=== PATIENT | female | born 2000 | race Caucasian/White ===

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

== ENCOUNTER 2022-02-22 11:13 | Emergency (ER) | payer OTHER ==
[~2022-02-22] VITALS: Ht 170.2 cm; Wt 80.3 kg
[2022-02-22 11:29] LABS: Source, Urine Clean Catch
[2022-02-22 11:36] LABS: Appearance, Urine Cloudy (Clear); Bilirubin, Urine Neg (Neg); Blood, Urine 3+ (Neg); Color, Urine Yellow (P-Yellow); Glucose Qualitative, Urine Neg (Neg); Ketones, Urine 3+ (Neg); Leukocyte Esterase, Urine 3+ (Neg); Nitrite, Urine Pos (Neg); Protein, Urine 3+ (Neg); Urobilinogen, Urine NORM (Normal)
[2022-02-22 11:49] LABS: White Blood Cells, Urine TNTC /hpf (0-5)
[2022-02-22 11:51] LABS: Bacteria Many /hpf; Squamous Epithelial Cells Few /hpf (Few)
[2022-02-22 11:52] LABS: Mucus Light (0-Heavy)
[2022-02-22 11:56] LABS: BASOPHILS ABSOLUTE AUTO 0.05 K/mm3 (0.00-0.23); BASOPHILS PERCENT AUTO 0 % (0-2); EOSINOPHILS ABSOLUTE AUTO 0.04 K/mm3 (0.00-0.68); EOSINOPHILS PERCENT AUTO 0 % (0-6); Hematocrit 34.9 % (33.0-51.0); Hemoglobin 12.2 g/dL (11.5-16.0); IMMATURE GRAN ABSOLUTE AUTO 0.07 K/mm3 (0.00-0.10); IMMATURE GRAN PERCENT AUTO 0 % (0-1); LYMPHOCYTES ABSOLUTE AUTO 1.01 K/mm3 (0.84-5.20); LYMPHOCYTES PERCENT AUTO 5 % (21-46); MONOCYTES ABSOLUTE AUTO 1.07 K/mm3 (0.16-1.47); MONOCYTES PERCENT AUTO 5 % (4-13); Mean Corpuscular HGB 30.6 pg (26.0-34.0); Mean Corpuscular Volume 88 fL (80-100); Mean Platelet Volume 10.4 fL (9.1-12.4); NEUTROPHILS PERCENT AUTO 89 % (41-73); Platelet Count 410 K/mm3 (150-400); RDW Coefficient Variation 12.2 % (11.7-14.2); RDW Standard Deviation 39.1 fL (35.1-46.3); Red Blood Cell Count 3.99 M/mm3 (3.80-5.20); White Blood Cell Count 19.64 K/mm3 (4.00-11.30)
[2022-02-22 12:10] LABS: Albumin, Blood 3.8 g/dL (3.4-5.0); Albumin/Globulin Ratio 0.8 (0.8-1.8); Bilirubin, Total 0.6 mg/dL (0.1-1.0); Bun/Creatinine Ratio 16.7 (12.0-20.0); Calcium, Blood 10.1 mg/dL (8.5-10.1); Creatinine, Blood 1.14 mg/dL (0.40-1.00); Globulin, Blood 4.9 g/dL (2.2-4.0); Total Protein, Blood 8.7 g/dL (6.4-8.2)
[2022-02-22] MEDS ORDERED: CEFD300 PO (13:39)
== END 2022-02-22 14:26 | disposition home or self-care (01) ==
LOC: ER 11:13
PROVIDERS: Physician Assistant
DX: N13.6 Pyonephrosis (principal); Z87.442 Personal history of urinary calculi
CPT/HCPCS: 36415; 74176; 80053; 81001; 81025; 85025; 87086; 96361; 96374; 96375; 99284-25; J0696; J1885; J2405; J7030

== ENCOUNTER 2022-05-17 09:11 | Inpatient (IN) | payer OTHER ==
[~2022-05-17] VITALS: Ht 170.2 cm; Wt 77.1 kg
[2022-05-17 10:21] LABS: BASOPHILS ABSOLUTE AUTO 0.06 K/mm3 (0.00-0.23); BASOPHILS PERCENT AUTO 0 % (0-2); EOSINOPHILS ABSOLUTE AUTO 0.01 K/mm3 (0.00-0.68); EOSINOPHILS PERCENT AUTO 0 % (0-6); Hematocrit 23.3 % (33.0-51.0); Hemoglobin 7.4 g/dL (11.5-16.0); IMMATURE GRAN ABSOLUTE AUTO 0.17 K/mm3 (0.00-0.10); IMMATURE GRAN PERCENT AUTO 1 % (0-1); LYMPHOCYTES ABSOLUTE AUTO 1.51 K/mm3 (0.84-5.20); LYMPHOCYTES PERCENT AUTO 7 % (21-46); MONOCYTES ABSOLUTE AUTO 2.27 K/mm3 (0.16-1.47); MONOCYTES PERCENT AUTO 10 % (4-13); Mean Corpuscular HGB 27.3 pg (26.0-34.0); Mean Corpuscular HGB Conc 31.8 g/dL (31.5-36.5); Mean Corpuscular Volume 86 fL (80-100); Mean Platelet Volume 10.4 fL (9.1-12.4); NEUTROPHILS ABSOLUTE AUTO 18.22 K/mm3 (1.96-9.15); NEUTROPHILS PERCENT AUTO 82 % (41-73); Platelet Count 554 K/mm3 (150-400); RDW Coefficient Variation 14.7 % (11.7-14.2); RDW Standard Deviation 46.5 fL (35.1-46.3); Red Blood Cell Count 2.71 M/mm3 (3.80-5.20); White Blood Cell Count 22.24 K/mm3 (4.00-11.30)
[2022-05-17 10:48] LABS: Source, Urine Clean Catch
[2022-05-17 10:51] LABS: Appearance, Urine Hazy (Clear); Bilirubin, Urine Neg (Neg); Blood, Urine 2+ (Neg); Color, Urine Yellow (P-Yellow); Glucose Qualitative, Urine Neg (Neg); Ketones, Urine 2+ (Neg); Leukocyte Esterase, Urine 3+ (Neg); Nitrite, Urine Neg (Neg); Protein, Urine 3+ (Neg); Specific Gravity, Urine 1.015 (1.003-1.022); Urobilinogen, Urine NORM (Normal)
[2022-05-17 10:59] LABS: Albumin, Blood 2.6 g/dL (3.4-5.0); Albumin/Globulin Ratio 0.4 (0.8-1.8); Bilirubin, Total 0.5 mg/dL (0.1-1.0); Bun/Creatinine Ratio 9.5 (12.0-20.0); Calcium, Blood 9.3 mg/dL (8.5-10.1); Creatinine, Blood 0.95 mg/dL (0.40-1.00); Globulin, Blood 5.9 g/dL (2.2-4.0); Potassium, Blood 3.8 mmol/L (3.5-5.5); Total Protein, Blood 8.5 g/dL (6.4-8.2)
[2022-05-17 11:00] LABS: Bacteria Few /hpf; Squamous Epithelial Cells Mod /hpf (Few); White Blood Cells, Urine 25-50 /hpf (0-5)
[2022-05-17 12:13] LABS: Influenza A, PCR NEGATIVE (NEGATIVE); Influenza B, PCR NEGATIVE (NEGATIVE); Resp Syncytial Virus, PCR NEGATIVE (NEGATIVE); SARS-Cov-2 (COVID-19) PCR, MMC NEGATIVE (NEGATIVE)
[2022-05-17 16:08] LABS: Hematocrit 23.1 % (33.0-51.0); Hemoglobin 7.3 g/dL (11.5-16.0)
--- NOTE | 2022-05-17 17:57 | NUR ---
1705 RECEIVED PT TO RM 333 VIA W/C FROM ER. PT IS A&O, ABLE TO TX SELF TO BED. ADMITTED FOR ACUTE BLOOD LOSS/ANEMIA. HX OF KIDNEY STONES, BL NEPHROSTOMY TUBES, BL URETAL STENTS WITH PERSISTANT FLANK PAIN. PER REPORT, PT TO ER WITH C/O N/V/D AND L FLANK PAIN. CT SHOWING SUBCAPSULAR HEMATOMA AND Hgb AT 7.3. PT TO HAVE SERIAL H/H TO SEE IF Hgb REMAINS STABLE OR POSSIBLE ACTIVE BLEED AT HEMATOMA. IF H/H STABLE, PT TO D/C HOME TOMORROW AND F/U WITH OUTPT UROLOGY. PT IS VERY PLEASANT, INDEPENDENT IN AND TO [facility]. RESTING QUIETLY AT THIS TIME. CALL LT IN REACH.
[2022-05-17 21:02] LABS: Hematocrit 21.6 % (33.0-51.0); Hemoglobin 7.1 g/dL (11.5-16.0)
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
[2022-05-18 05:16] LABS: Hematocrit 22.6 % (33.0-51.0); Hemoglobin 7.2 g/dL (11.5-16.0); Mean Corpuscular HGB 27.4 pg (26.0-34.0); Mean Corpuscular HGB Conc 31.9 g/dL (31.5-36.5); Mean Corpuscular Volume 86 fL (80-100); Mean Platelet Volume 10.4 fL (9.1-12.4); Platelet Count 539 K/mm3 (150-400); RDW Coefficient Variation 15.5 % (11.7-14.2); RDW Standard Deviation 48.8 fL (35.1-46.3); Red Blood Cell Count 2.63 M/mm3 (3.80-5.20); White Blood Cell Count 19.05 K/mm3 (4.00-11.30)
[2022-05-18 11:01] LABS: Hematocrit 21.9 % (33.0-51.0)
[2022-05-18 15:01] LABS: Hematocrit 20.5 % (33.0-51.0); Hemoglobin 6.6 g/dL (11.5-16.0)
--- NOTE | 2022-05-18 18:36 | NUR ---
SHIFT SUMMARY: PATIENT A&OX4. PLEASANT AND COOPERATIVE c CARE. USES CALL LIGHT APPROPRIATELY AND ABLE TO ADVOCATE FOR HER NEEDS. PATIENT REPORTS OF PAIN TO L LEG. MEDICATED X1 c FENTANYL AND PERCOCET FOR PAIN. PATIENT REPORTS OF ADEQUATE RELIEF. PATIENT H&H HAS BEEN DROPPING TODAY. PRBC STARTED TRANSFUSION AT 1640 VITAL SIGNS REVIEWED. PATIENT HAD CONSULT FOR INTERVENTIONAL RADIOLOGIST FOR L SUBCAPSULAR HEMATOMA c WORSENING ANEMIA. CONSULT WAS CALLED THIS PM AND SPOKE TO ANSWERING SERVICE FOR DR. LUCAS'S OFFICE. THIS PM DR. LUCAS CAME AND SAW PATIENT FOR CONSULT. PATIENT LEFT THE ROOM AT 1828 TO [facility] FOR PROCEDURE. TRANSPORTED VIA HOSPITAL BED BY KERA CHARLTON FROM [facility].
--- NOTE | 2022-05-18 19:16 | NUR ---
REPORT GIVEN TO PROTOTYPE ENGINEER MANAGER REGARDING PATIENT CONDITION.
--- NOTE | 2022-05-18 20:05 | NUR ---
update Pt arrived to room from [facility] approx [phone]. Pt alert, oriented, accompained by and 4 month old daughter. vss. telemetry applied. bp set up to sequence post op vitals. Report received from Angelica [facility] nurse. Assessed R groin site together, site soft, minimal blood around chg part of dressing, no bruising. pt educated on laying flat for recovery, not bending leg. Call light in reach, orietned to room, call light.
[2022-05-18 20:34] LABS: Hematocrit 25.9 % (33.0-51.0); Hemoglobin 8.2 g/dL (11.5-16.0)
--- NOTE | 2022-05-19 06:27 | NUR ---
SHIFT SUMMARY PT A&O X4, PLEASANT. SP02>90% ON RA. TELEMETRY SHOWED MOSTLY NSR/SIT HR 90'S-100'S. VSS. PT HAS R GROIN SITE, NO BRUISING, NO OOZING. PT C/O AROUND MIDNIGHT OF PRESSURE AROUND SITE. SITE HAD QUARTER SIZE HARD LUMP. PRESSURE HELD, LUMP DISBANDED, PT STATED RELIEF FROM PRESSURE. SITE RECOVERED, PT AMBULATED TO BATHROOM TO VOID. ABX INFUSED PER EMAR. SPOUSE AND DAUGHTER WENT HOME SHORTLY AFTER PT ARRIVED TO ROOM. PT TALKED ON PHONE TO SPOUSE UNTIL AROUND MIDNIGHT, THEN WENT TO SLEEP. PT CURRENTLY SLEEPING ON HER BACK IN ROOM.
[2022-05-19 09:07] LABS: BASOPHILS ABSOLUTE AUTO 0.06 K/mm3 (0.00-0.23); BASOPHILS PERCENT AUTO 0 % (0-2); EOSINOPHILS ABSOLUTE AUTO 0.08 K/mm3 (0.00-0.68); EOSINOPHILS PERCENT AUTO 1 % (0-6); Hematocrit 22.2 % (33.0-51.0); Hemoglobin 7.2 g/dL (11.5-16.0); IMMATURE GRAN PERCENT AUTO 1 % (0-1); LYMPHOCYTES PERCENT AUTO 7 % (21-46); MONOCYTES ABSOLUTE AUTO 1.53 K/mm3 (0.16-1.47); MONOCYTES PERCENT AUTO 9 % (4-13); Mean Corpuscular HGB 27.7 pg (26.0-34.0); Mean Corpuscular HGB Conc 32.4 g/dL (31.5-36.5); Mean Corpuscular Volume 85 fL (80-100); Mean Platelet Volume 10.6 fL (9.1-12.4); NEUTROPHILS ABSOLUTE AUTO 13.25 K/mm3 (1.96-9.15); NEUTROPHILS PERCENT AUTO 82 % (41-73); Platelet Count 457 K/mm3 (150-400); RDW Coefficient Variation 15.6 % (11.7-14.2); RDW Standard Deviation 49.1 fL (35.1-46.3); White Blood Cell Count 16.22 K/mm3 (4.00-11.30)
[2022-05-19 09:17] LABS: Albumin, Blood 2.1 g/dL (3.4-5.0); Albumin/Globulin Ratio 0.4 (0.8-1.8); Bilirubin, Total 0.7 mg/dL (0.1-1.0); Bun/Creatinine Ratio 7.8 (12.0-20.0); Calcium, Blood 8.8 mg/dL (8.5-10.1); Creatinine, Blood 1.02 mg/dL (0.40-1.00); Globulin, Blood 5.3 g/dL (2.2-4.0); Potassium, Blood 3.5 mmol/L (3.5-5.5); Total Protein, Blood 7.4 g/dL (6.4-8.2)
[2022-05-19 12:45] LABS: Hematocrit 24.1 % (33.0-51.0); Hemoglobin 7.8 g/dL (11.5-16.0)
[2022-05-19 16:58] LABS: Hematocrit 22.9 % (33.0-51.0); Hemoglobin 7.6 g/dL (11.5-16.0)
--- NOTE | 2022-05-19 18:06 | NUR ---
SHIFT SUMMARY; ASSUMED CARE AT 0700. A/A/OX4 DURING SHIFT. INDEPENDANT IN ROOM. VSS, SPOUSE AT BEDSIDE DURING SHIFT. PLEASANT AND COOPERATIVE WITH CARE. H & H MONITORED DURING SHIFT. MEDS PER EMAR, NO ACUTE CHANGES, WILL CONTINUE TO MONITOR AND TREAT UNTIL CHANGE OF SHIFT.
[2022-05-19 20:18] LABS: Hematocrit 25.3 % (33.0-51.0); Hemoglobin 8.1 g/dL (11.5-16.0)
[2022-05-20 04:31] LABS: BASOPHILS ABSOLUTE AUTO 0.04 K/mm3 (0.00-0.23); BASOPHILS PERCENT AUTO 0 % (0-2); EOSINOPHILS ABSOLUTE AUTO 0.09 K/mm3 (0.00-0.68); EOSINOPHILS PERCENT AUTO 1 % (0-6); Hematocrit 22.3 % (33.0-51.0); Hemoglobin 7.3 g/dL (11.5-16.0); IMMATURE GRAN PERCENT AUTO 1 % (0-1); LYMPHOCYTES ABSOLUTE AUTO 1.73 K/mm3 (0.84-5.20); LYMPHOCYTES PERCENT AUTO 10 % (21-46); MONOCYTES ABSOLUTE AUTO 1.58 K/mm3 (0.16-1.47); MONOCYTES PERCENT AUTO 9 % (4-13); Mean Corpuscular HGB 27.9 pg (26.0-34.0); Mean Corpuscular HGB Conc 32.7 g/dL (31.5-36.5); Mean Corpuscular Volume 85 fL (80-100); Mean Platelet Volume 10.9 fL (9.1-12.4); NEUTROPHILS ABSOLUTE AUTO 14.26 K/mm3 (1.96-9.15); NEUTROPHILS PERCENT AUTO 80 % (41-73); Platelet Count 474 K/mm3 (150-400); RDW Coefficient Variation 15.8 % (11.7-14.2); RDW Standard Deviation 49.5 fL (35.1-46.3); Red Blood Cell Count 2.62 M/mm3 (3.80-5.20)
[2022-05-20 04:53] LABS: Bun/Creatinine Ratio 5.5 (12.0-20.0); Calcium, Blood 8.8 mg/dL (8.5-10.1); Creatinine, Blood 1.09 mg/dL (0.40-1.00); Potassium, Blood 3.5 mmol/L (3.5-5.5)
--- NOTE | 2022-05-20 06:44 | NUR ---
PATIENT CONTINUES TO COMPLAIN OF LEFT FLANK PAIN. PRN ANALGESICS ADMINISTERED ORDERED DO PROVIDE SOME RELIEF. ADDED HEATING PAD FOR ADDITIONAL COMFORT. IV ANTIBIOTICS ADMNISTERED ORDERED. WBCs ELEVAED FROM 16.22 TO 17.8 THIS MORNING. PT DENIES PAIN WITH URINATION OR BLOOD IN URINE. HAT WAS REMOVED FROM TOILET AT SOME POINT IN THE NIGHT, SO ONLY ABLE TO RECORD URINE OCCURRENCES PER PATIENT REPORT. PT REPORTS INTERMITTENT NAUSEA PRIOR TO AND SINCE ADMISSION. ONE DOSE OF PRN ONDANSETRON ADMINISTERED OVERNIGHT PROVIDED RELIEF FROM NAUSEA. PATIENT APPEARS TO BE RESTING COMFORTABLY IN BED AT THIS TIME.
[2022-05-20 10:31] LABS: Vancomycin, Trough 41.6 ug/mL (5.0-10.0)
--- NOTE | 2022-05-20 12:35 | NUR ---
UPDATE DR KAY CONTACTED REGARDING PT HGB 7.3. TELEPHONE ORDERS FOR REPEAT H&H AT 1600 TODAY.
[2022-05-20 16:09] LABS: Hematocrit 26.6 % (33.0-51.0); Hemoglobin 8.3 g/dL (11.5-16.0)
--- NOTE | 2022-05-20 16:20 | NUR ---
SHIFT SUMMARY PT A/O X4, PLEASANT AND COOPERATIVE WITH CARE. SPO2 >92%. PT ABLE TO AMBULATE INDEPENDENTLY TO RESTROOM, DENIES ANY DIZZINESS OR LIGHT HEADEDNESS. PT HAD A FEW EPISODES OF INTERMITTENT NAUSEA AND VOMITTED TWICE. PT HR INCREASED TO 110-130'S AND PT ALSO DIAPHORETIC WITH CHILLS WHEN NAUSEATED. PT TEMP SLIGHTLY ELEVATED, BUT REMAINED BELOW 99.5. PT CONTINUES TO C/O L FLANK PAIN THAT IS EASILY RELIEVED WITH ANALGESICS. PT PAIN ALSO SEEMS TO INCREASE WHEN SHE IS NAUSEATED. SHE REPORTS HAVING A LOOSE BM TODAY. PT FAMILY AT THE BEDSIDE NOW.
[2022-05-21 04:28] LABS: BASOPHILS ABSOLUTE AUTO 0.07 K/mm3 (0.00-0.23); BASOPHILS PERCENT AUTO 0 % (0-2); EOSINOPHILS ABSOLUTE AUTO 0.09 K/mm3 (0.00-0.68); EOSINOPHILS PERCENT AUTO 0 % (0-6); Hematocrit 24.3 % (33.0-51.0); Hemoglobin 7.7 g/dL (11.5-16.0); IMMATURE GRAN ABSOLUTE AUTO 0.19 K/mm3 (0.00-0.10); IMMATURE GRAN PERCENT AUTO 1 % (0-1); LYMPHOCYTES ABSOLUTE AUTO 1.44 K/mm3 (0.84-5.20); LYMPHOCYTES PERCENT AUTO 6 % (21-46); MONOCYTES ABSOLUTE AUTO 1.74 K/mm3 (0.16-1.47); MONOCYTES PERCENT AUTO 8 % (4-13); Mean Corpuscular HGB 27.2 pg (26.0-34.0); Mean Corpuscular HGB Conc 31.7 g/dL (31.5-36.5); Mean Corpuscular Volume 86 fL (80-100); Mean Platelet Volume 10.4 fL (9.1-12.4); NEUTROPHILS ABSOLUTE AUTO 19.12 K/mm3 (1.96-9.15); NEUTROPHILS PERCENT AUTO 84 % (41-73); Platelet Count 468 K/mm3 (150-400); RDW Coefficient Variation 15.6 % (11.7-14.2); RDW Standard Deviation 49.1 fL (35.1-46.3); Red Blood Cell Count 2.83 M/mm3 (3.80-5.20); White Blood Cell Count 22.65 K/mm3 (4.00-11.30)
--- NOTE | 2022-05-21 06:31 | NUR ---
MS. DOE HAD TWO EPISODES OF NAUSEA WITH DRY HEAVES, SPITTING UP SOME SALIVA, BETWEEN 2100 AND 2300 LAST NIGHT. ZOFRAN AND PHENERGAN WERE ADMINISTERED ORDERED. MINIMAL RELIEF WITH ZOFRAN. NAUSEA RESOLVED WITH PHENERGAN. TEMPERATURE PEAKED AT 101.7. TYLENOL ADMINISTERED AND TEMPERATURE RESOLVED. PATIENT CONTINUES TO HAVE INTERMITTENT SEVERE BOUTS OF PAIN TO THE LEFT FLANK. HEART RATE DROPPED INTO THE 50S WHILE SLEEPING AT ONE POINT AND CAN ELEVATE TO THE 150S WITH SEVERE PAIN. WBCS ELEVATED AGAIN TODAY AT 22.65, UP FROM 17.80 YESTERDAY. HEMOGLOBIN DROPPED FROM 8.3 YESTERDAY TO 7.7 TODAY.
--- NOTE | 2022-05-21 07:42 | NUR ---
DR KAY CONTACTED REGARDING PT INCREASING WBC'S AND ZOSYN BEING D/C'D. PER DR KAY, PLAN TO MONITOR PT AT THIS TIME DUE TO PT BLOOD AND URINE CULTURES BEING NEGATIVE. NO NEW ABX ORDERS.
[2022-05-21 18:22] LABS: Vancomycin, Random 8.9 ug/mL
--- NOTE | 2022-05-21 19:18 | NUR ---
SHIFT SUMMARY PT WAS PLEASANT AND COOPERATIVE WITH CARE. A/O X4. INDEPENDENT IN ROOM. PT WAS IN SINUS TACH, RATE 100-110'S MAJORITY OF SHIFT AND INCREASE IN RATE WITH AMBULATION. PT HAD LOW GRADE TEMP THAT DECREASED WITH PO TYLENOL. PT STILL C/O L FLANK PAIN THAT IS INTERMITTENT, PAIN WAS RELIEVED WITH PRN ANALGESICS. PT DENIES ANY NAUSEA T/O SHIFT. DR KAY RESTARTED PT ON ZOSYN AND VANCO TODAY. ZOSYN STILL INFUSING, VANCO HAS NOT BEEN STARTED YET. VANCO TROUGH WAS REDRAWN AND DOWN TO THE 8'S. PT PROCALCITONIN UP TO 4.66. ORDER FOR CT OF ABD AND PELVIS WITH CONTRAST PLACED FOR TOMORROW MORNING. BLOOD CULTURES ALSO REDRAWN TODAY. REPORT GIVEN TO INVENTORY TECHNICIAN RN.
--- NOTE | 2022-05-22 06:35 | NUR ---
PATIENT CONTINUES TO EXPERIENCE INTERMITTENT NAUSEA, LOW GRADE FEVER AND LEFT FLANK PAIN. MEDICATED PER EMAR PRN. HEART RATE WILL INCREASE HIGH INTO THE 150S WITH PAIN. PATIENT CONTINUES TO BE INDEPENDENT WITH AMBULATION AND ADLs. 0615 VANCOMYCIN TROUGH IS PENDING. PER PHARMD, DO NOT ADMINISTER 07:00 UNTIL CLEARED BY PHARMD TO DO SO.
[2022-05-22 06:54] LABS: Vancomycin, Trough 21.8 ug/mL (5.0-10.0)
[2022-05-22 10:14] LABS: BASOPHILS ABSOLUTE AUTO 0.05 K/mm3 (0.00-0.23); BASOPHILS PERCENT AUTO 0 % (0-2); EOSINOPHILS ABSOLUTE AUTO 0.11 K/mm3 (0.00-0.68); EOSINOPHILS PERCENT AUTO 1 % (0-6); Hematocrit 22.7 % (33.0-51.0); Hemoglobin 7.3 g/dL (11.5-16.0); IMMATURE GRAN ABSOLUTE AUTO 0.19 K/mm3 (0.00-0.10); IMMATURE GRAN PERCENT AUTO 1 % (0-1); LYMPHOCYTES ABSOLUTE AUTO 1.46 K/mm3 (0.84-5.20); LYMPHOCYTES PERCENT AUTO 6 % (21-46); MONOCYTES ABSOLUTE AUTO 2.02 K/mm3 (0.16-1.47); MONOCYTES PERCENT AUTO 9 % (4-13); Mean Corpuscular HGB Conc 32.2 g/dL (31.5-36.5); Mean Corpuscular Volume 87 fL (80-100); Mean Platelet Volume 10.7 fL (9.1-12.4); NEUTROPHILS ABSOLUTE AUTO 19.59 K/mm3 (1.96-9.15); NEUTROPHILS PERCENT AUTO 84 % (41-73); Platelet Count 489 K/mm3 (150-400); RDW Coefficient Variation 15.9 % (11.7-14.2); RDW Standard Deviation 50.9 fL (35.1-46.3); Red Blood Cell Count 2.61 M/mm3 (3.80-5.20); White Blood Cell Count 23.42 K/mm3 (4.00-11.30)
[2022-05-22 16:07] LABS: Hematocrit 24.7 % (33.0-51.0); Hemoglobin 7.8 g/dL (11.5-16.0)
[2022-05-23 04:26] LABS: BASOPHILS ABSOLUTE AUTO 0.08 K/mm3 (0.00-0.23); BASOPHILS PERCENT AUTO 0 % (0-2); EOSINOPHILS ABSOLUTE AUTO 0.13 K/mm3 (0.00-0.68); EOSINOPHILS PERCENT AUTO 1 % (0-6); Hematocrit 22.4 % (33.0-51.0); Hemoglobin 7.1 g/dL (11.5-16.0); IMMATURE GRAN ABSOLUTE AUTO 0.36 K/mm3 (0.00-0.10); IMMATURE GRAN PERCENT AUTO 2 % (0-1); LYMPHOCYTES ABSOLUTE AUTO 1.85 K/mm3 (0.84-5.20); LYMPHOCYTES PERCENT AUTO 9 % (21-46); MONOCYTES ABSOLUTE AUTO 1.78 K/mm3 (0.16-1.47); MONOCYTES PERCENT AUTO 8 % (4-13); Mean Corpuscular HGB 27.1 pg (26.0-34.0); Mean Corpuscular HGB Conc 31.7 g/dL (31.5-36.5); Mean Corpuscular Volume 86 fL (80-100); NEUTROPHILS ABSOLUTE AUTO 17.47 K/mm3 (1.96-9.15); NEUTROPHILS PERCENT AUTO 81 % (41-73); Platelet Count 479 K/mm3 (150-400); RDW Standard Deviation 50.7 fL (35.1-46.3); Red Blood Cell Count 2.62 M/mm3 (3.80-5.20); White Blood Cell Count 21.67 K/mm3 (4.00-11.30)
--- NOTE | 2022-05-23 05:32 | NUR ---
SHIFT SUMMARY A/OX4, IND IN ROOM. C/O L. FLANK PAIN, MEDICATED PER EMAR. VSS, NO ACUTE CHANGES AT THIS TIME. BED IN LOWEST POSITION WITH CALL LIGHT IN REACH. WILL CONTINUE TO MONITOR AND REPORT TO ONCOMING RN.
[2022-05-23 06:09] LABS: Anion Gap 6 mmol/L (6-16); Blood Urea Nitrogen 9 mg/dL (8-24); Bun/Creatinine Ratio 5.6 (12.0-20.0); CO2, Blood 22 mmol/L (21-32); Calcium, Blood 8.6 mg/dL (8.5-10.1); Chloride, Blood 106 mmol/L (98-108); Creatinine, Blood 1.61 mg/dL (0.40-1.00); Glomerular Filtration Rate 47 (60-); Glucose, Blood 93 mg/dL (70-99); Potassium, Blood 3.3 mmol/L (3.5-5.5); Sodium, Blood 134 mmol/L (136-145); Vancomycin, Random 19.2 ug/mL
--- NOTE | 2022-05-23 18:19 | NUR ---
RN SHIFT SUMMARY PT ALERT, ORIENTED, PLEASANT, INDEPENDENT THROUGHOUT SHIFT. MEDICATED FOR PAIN 2X PER EMAR. VSS THROUGHOUT SHIFT, SINUS RHYTHM/TACHYCARDIA FROM 90S-110S. SPO2 >92% ON RA, BLOOD PRESSURES STABLE. IV ABX AND NS AT 100ML/HR INFUSING. OTHERWISE NO ACUTE CHANGES THROUGHOUT SHIFT. REGULAR URINE OUTPUT, SEE I&O FLOWSHEETS, PALE YELLOW. CALL WAS PLACED TO RENAL FOR CONSULT FOR PTS DECREASED GFR.
[2022-05-24 00:12] LABS: Source, Urine Clean Catch
[2022-05-24 00:29] LABS: Bilirubin, Urine Neg (Neg); Blood, Urine 1+ (Neg); Glucose Qualitative, Urine Neg (Neg); Ketones, Urine Neg (Neg); Leukocyte Esterase, Urine 2+ (Neg); Nitrite, Urine Neg (Neg); Protein, Urine 2+ (Neg); Specific Gravity, Urine 1.005 (1.003-1.022); Urobilinogen, Urine NORM (Normal)
[2022-05-24 00:43] LABS: Appearance, Urine Clear (Clear); Color, Urine Pale Yellow (P-Yellow)
[2022-05-24 00:45] LABS: Bacteria Mod /hpf; Red Blood Cells, Urine 0-2 /hpf (0-2); Squamous Epithelial Cells Few /hpf (Few)
[2022-05-24 04:19] LABS: BASOPHILS ABSOLUTE AUTO 0.06 K/mm3 (0.00-0.23); BASOPHILS PERCENT AUTO 0 % (0-2); EOSINOPHILS ABSOLUTE AUTO 0.13 K/mm3 (0.00-0.68); EOSINOPHILS PERCENT AUTO 1 % (0-6); Hematocrit 21.9 % (33.0-51.0); IMMATURE GRAN ABSOLUTE AUTO 0.29 K/mm3 (0.00-0.10); IMMATURE GRAN PERCENT AUTO 1 % (0-1); LYMPHOCYTES ABSOLUTE AUTO 1.72 K/mm3 (0.84-5.20); LYMPHOCYTES PERCENT AUTO 8 % (21-46); MONOCYTES ABSOLUTE AUTO 1.86 K/mm3 (0.16-1.47); MONOCYTES PERCENT AUTO 9 % (4-13); Mean Corpuscular HGB 27.9 pg (26.0-34.0); Mean Corpuscular Volume 87 fL (80-100); Mean Platelet Volume 10.1 fL (9.1-12.4); NEUTROPHILS ABSOLUTE AUTO 16.47 K/mm3 (1.96-9.15); NEUTROPHILS PERCENT AUTO 80 % (41-73); Platelet Count 468 K/mm3 (150-400); RDW Coefficient Variation 15.9 % (11.7-14.2); Red Blood Cell Count 2.51 M/mm3 (3.80-5.20); White Blood Cell Count 20.53 K/mm3 (4.00-11.30)
--- NOTE | 2022-05-24 05:43 | NUR ---
SHIFT SUMMARY A/OX4, IND IN ROOM. CONTINUES TO HAVE 7/10 L. FLANK PAIN, MEDCIATED PER EMAR. TELE SR IN THE 80S. SLEPT T/O THE NIGHT. VSS, NO ACUTE CHANGES AT THIS TIME. BED IN LOWEST POSITION WITH CALL LIGHT IN REACH. WILL CONTINUE TO MONITOR AND REPORT TO ONCOMING RN.
--- NOTE | 2022-05-24 06:10 | NUR ---
PROVIDER NOTIFY HGB 7.0 ON AM [address]S. PER DR. OVRA HE WILL REVIEW CHART AND NOTIFY NURSE OF NEW ORDERS.
[2022-05-24 11:45] LABS: CPK Creatine Kinase 16 U/L (26-193); Magnesium, Blood 1.8 mg/dL (1.6-2.4); Uric Acid, Blood 2.9 mg/dL (2.6-6.0)
[2022-05-24 11:55] LABS: Alanine Aminotransfer (ALT/SGP 31 U/L (12-78); Albumin, Blood 1.9 g/dL (3.4-5.0); Albumin/Globulin Ratio 0.4 (0.8-1.8); Alk Phos 106 U/L (50-136); Anion Gap 8 mmol/L (6-16); Aspartate Aminotrans (AST/SGOT 30 U/L (12-37); Bilirubin, Total 0.5 mg/dL (0.1-1.0); Blood Urea Nitrogen 8 mg/dL (8-24); Bun/Creatinine Ratio 5.4 (12.0-20.0); C-REACTIVE PROTEIN, EXT RANGE >19.000 mg/dL (0.000-0.300); CO2, Blood 23 mmol/L (21-32); Calcium, Blood 8.7 mg/dL (8.5-10.1); Chloride, Blood 107 mmol/L (98-108); Creatinine, Blood 1.47 mg/dL (0.40-1.00); Globulin, Blood 5.2 g/dL (2.2-4.0); Glomerular Filtration Rate 52 (60-); Glucose, Blood 95 mg/dL (70-99); Phosphorus, Blood 3.3 mg/dL (2.5-4.9); Potassium, Blood 3.5 mmol/L (3.5-5.5); Sodium, Blood 138 mmol/L (136-145); Total Protein, Blood 7.1 g/dL (6.4-8.2); Vancomycin, Random 9.2 ug/mL
--- NOTE | 2022-05-24 18:12 | NUR ---
Shift Summary Pt alert, oriented X4; calm and cooperative with care. Pt up ind in room. Pt reports pain to left flank this am, medicated per emar. Pt had 2 episodes of nauseas with one emesis. Tele sinus 80-110's, 130-150;'s with activity, bp soft. Pt spo2 >90% on ra, breathing even and unlabored. Pt reports having diarrhea. Pt continues with iv fluids an iv antibiotics. Other vss. no other acute changes noted. Will continue to monitor.
--- NOTE | 2022-05-25 00:52 | NUR ---
TRANSFER PT TRANSFERRED FROM PCU-05 TO ROOM 209 VIA BED, BELONGINGS SENT WITH PATIENT. REPORT GIVEN TO KERA WINTERS
--- NOTE | 2022-05-25 00:57 | NUR ---
TRANSFER PT TRANSFERRED FROM PCU AT THIS TIME. ALERT, ORIENTED, AND INDEP IN THE ROOM. MEDICATED FOR PAIN IN PCU BEFORE ARRIVAL TO UNIT. IV ABX INFUSING PER ORDERS. VSS. TELE IN PLACE. PT ORIENTED TO ROOM AND CALL LIGHT AND DENIES ANY NEEDS AT THIS TIME.
--- NOTE | 2022-05-25 04:41 | NUR ---
SHIFT SUMMARY NO ACUTE CHANGES SINCE TRANSFER FROM PCU. PT HAS RESTED WELL AND HAS DENIED ANY NEEDS. INDEP IN ROOM. USES CALL LIGHT APPROPRIATELY.
[2022-05-25 05:14] LABS: Bun/Creatinine Ratio 6.9 (12.0-20.0); Calcium, Blood 8.3 mg/dL (8.5-10.1); Creatinine, Blood 1.44 mg/dL (0.40-1.00); Potassium, Blood 3.5 mmol/L (3.5-5.5)
[2022-05-25 05:26] LABS: BASOPHILS ABSOLUTE AUTO 0.06 K/mm3 (0.00-0.23); BASOPHILS PERCENT AUTO 0 % (0-2); EOSINOPHILS ABSOLUTE AUTO 0.14 K/mm3 (0.00-0.68); EOSINOPHILS PERCENT AUTO 1 % (0-6); Hematocrit 22.3 % (33.0-51.0); IMMATURE GRAN ABSOLUTE AUTO 0.31 K/mm3 (0.00-0.10); IMMATURE GRAN PERCENT AUTO 2 % (0-1); LYMPHOCYTES ABSOLUTE AUTO 1.76 K/mm3 (0.84-5.20); LYMPHOCYTES PERCENT AUTO 9 % (21-46); MONOCYTES ABSOLUTE AUTO 1.51 K/mm3 (0.16-1.47); MONOCYTES PERCENT AUTO 8 % (4-13); Mean Corpuscular HGB 27.6 pg (26.0-34.0); Mean Corpuscular HGB Conc 31.4 g/dL (31.5-36.5); Mean Corpuscular Volume 88 fL (80-100); Mean Platelet Volume 9.8 fL (9.1-12.4); NEUTROPHILS ABSOLUTE AUTO 15.08 K/mm3 (1.96-9.15); NEUTROPHILS PERCENT AUTO 80 % (41-73); Platelet Count 487 K/mm3 (150-400); RDW Coefficient Variation 15.9 % (11.7-14.2); RDW Standard Deviation 51.3 fL (35.1-46.3); Red Blood Cell Count 2.54 M/mm3 (3.80-5.20); White Blood Cell Count 18.86 K/mm3 (4.00-11.30)
--- NOTE | 2022-05-25 10:51 | NUR ---
TACHY W/ACTIVITY PER TELE, PT TACHY WHEN AMBULATING. HR DECREASES WHEN PT AT REST. ASYMPTOMATIC. REPORTED TO DR VORA.
--- NOTE | 2022-05-25 18:35 | NUR ---
summary PT REC'D 1 UNIT PRBCS THIS AFTERNOON. MEDICATED THIS AM AND EVENING FOR L FLANK PAIN. AT END OF TRANSFUSION, PT'S TEMP 101.1. RECHECKED AND TEMP HAS DECREASED TO 100.1. NOTIFIED DR DENT AND ORDERS OBTAINED. PT INDEPENDENT IN ROOM. FAMILY AT BEDSIDE. PT TEARFUL. PLACED CLEAN COLLECTION HAT IN TOILET AND ADVISED PT TO CALL WHEN VOIDS IN ORDER TO SEND OFF SPECIMEN. NOTIFIED PT OF PENDING LABS. PT VERBALIZED UNDERSTANDING. CALL LIGHT IN REACH.
[2022-05-25 22:47] LABS: Source, Urine Voided
[2022-05-25 22:49] LABS: Appearance, Urine Clear (Clear); Bilirubin, Urine Neg (Neg); Blood, Urine Neg (Neg); Glucose Qualitative, Urine Neg (Neg); Ketones, Urine Neg (Neg); Leukocyte Esterase, Urine 1+ (Neg); Nitrite, Urine Neg (Neg); Protein, Urine 1+ (Neg); Urobilinogen, Urine NORM (Normal)
[2022-05-25 22:55] LABS: Color, Urine Pale Yellow (P-Yellow)
[2022-05-25 22:56] LABS: Bacteria Mod /hpf; Red Blood Cells, Urine 0-2 /hpf (0-2); Squamous Epithelial Cells Few /hpf (Few)
[2022-05-26 05:14] LABS: BASOPHILS ABSOLUTE AUTO 0.06 K/mm3 (0.00-0.23); BASOPHILS PERCENT AUTO 0 % (0-2); EOSINOPHILS ABSOLUTE AUTO 0.21 K/mm3 (0.00-0.68); EOSINOPHILS PERCENT AUTO 1 % (0-6); Hematocrit 23.5 % (33.0-51.0); Hemoglobin 7.5 g/dL (11.5-16.0); IMMATURE GRAN ABSOLUTE AUTO 0.31 K/mm3 (0.00-0.10); IMMATURE GRAN PERCENT AUTO 2 % (0-1); LYMPHOCYTES ABSOLUTE AUTO 2.17 K/mm3 (0.84-5.20); LYMPHOCYTES PERCENT AUTO 12 % (21-46); MONOCYTES ABSOLUTE AUTO 1.45 K/mm3 (0.16-1.47); MONOCYTES PERCENT AUTO 8 % (4-13); Mean Corpuscular HGB 27.5 pg (26.0-34.0); Mean Corpuscular HGB Conc 31.9 g/dL (31.5-36.5); Mean Corpuscular Volume 86 fL (80-100); Mean Platelet Volume 9.7 fL (9.1-12.4); NEUTROPHILS ABSOLUTE AUTO 14.42 K/mm3 (1.96-9.15); NEUTROPHILS PERCENT AUTO 77 % (41-73); Platelet Count 516 K/mm3 (150-400); RDW Standard Deviation 50.7 fL (35.1-46.3); Red Blood Cell Count 2.73 M/mm3 (3.80-5.20); White Blood Cell Count 18.62 K/mm3 (4.00-11.30)
[2022-05-26 05:50] LABS: Bun/Creatinine Ratio 5.9 (12.0-20.0); Calcium, Blood 8.4 mg/dL (8.5-10.1); Creatinine, Blood 1.35 mg/dL (0.40-1.00); Potassium, Blood 3.7 mmol/L (3.5-5.5)
--- NOTE | 2022-05-26 07:12 | NUR ---
SHIFT SUMMARY: PT RESTED COMFORTABLY T/O THE NIGHT. MEDICATED ONCE WITH PEROCET PER EMAR ORDERS, MANAGED PAIN WELL. TOLERATING PO FLUIDS AND DIET. INDEPENDENT IN ROOM. CONTINUE TO RECEIVE ABX. REMAINS SLIGHTLY TACHYCARDIC, DENIED CHEST PAIN OR SOB T/O THE SHIFT. RESTING AT THIS TIME WITH CALL LIGHT IN REACH.
--- NOTE | 2022-05-26 17:23 | NUR ---
SUMMARY NO ACUTE CHANGES T/O SHIFT. PT INDEPENDENT IN ROOM. SHOWERING AT THIS TIME.
--- NOTE | 2022-05-27 04:20 | NUR ---
SHIFT SUMMARY: PAIN WELL MANAGED T/O THE NIGHT WITH PO PERCOCET. VSS, REMAINS SLIGHTLY TACHYCARDIC AT TIMES. PT IND IN ROOM. EATING, DRINKING, VOIDING. FLUIDS CONTINUE TO RUN. DENIED N/V T/O THE SHIFT. CONTINUES TO C/O L FLANK PAIN. PLANS TO CONTINUE TO MONITOR KIDNEY FUNCTION. PT REPORTS POTENTIAL PLAN TO DC MONDAY.
[2022-05-27 09:04] LABS: Vancomycin, Trough 14.7 ug/mL (5.0-10.0)
[2022-05-27 09:40] LABS: BASOPHILS ABSOLUTE AUTO 0.06 K/mm3 (0.00-0.23); BASOPHILS PERCENT AUTO 0 % (0-2); EOSINOPHILS ABSOLUTE AUTO 0.25 K/mm3 (0.00-0.68); EOSINOPHILS PERCENT AUTO 2 % (0-6); Hematocrit 25.1 % (33.0-51.0); Hemoglobin 7.9 g/dL (11.5-16.0); IMMATURE GRAN ABSOLUTE AUTO 0.24 K/mm3 (0.00-0.10); IMMATURE GRAN PERCENT AUTO 1 % (0-1); LYMPHOCYTES ABSOLUTE AUTO 1.88 K/mm3 (0.84-5.20); LYMPHOCYTES PERCENT AUTO 11 % (21-46); MONOCYTES ABSOLUTE AUTO 1.34 K/mm3 (0.16-1.47); MONOCYTES PERCENT AUTO 8 % (4-13); Mean Corpuscular HGB 27.2 pg (26.0-34.0); Mean Corpuscular HGB Conc 31.5 g/dL (31.5-36.5); Mean Corpuscular Volume 87 fL (80-100); Mean Platelet Volume 9.5 fL (9.1-12.4); NEUTROPHILS ABSOLUTE AUTO 12.92 K/mm3 (1.96-9.15); NEUTROPHILS PERCENT AUTO 77 % (41-73); Platelet Count 570 K/mm3 (150-400); RDW Coefficient Variation 15.9 % (11.7-14.2); RDW Standard Deviation 50.7 fL (35.1-46.3); White Blood Cell Count 16.69 K/mm3 (4.00-11.30)
[2022-05-27 11:52] LABS: Bun/Creatinine Ratio 6.2 (12.0-20.0); Calcium, Blood 8.8 mg/dL (8.5-10.1); Creatinine, Blood 1.28 mg/dL (0.40-1.00); Potassium, Blood 3.8 mmol/L (3.5-5.5)
[2022-05-27] MEDS ORDERED: ONDA4 PO (14:35)
[2022-05-27] MEDS ORDERED: Percocet 5-3251 EACH PO (14:36)
[2022-05-27] MEDS ORDERED: CIPRO500 MG/5 M PO (14:37)
--- NOTE | 2022-05-27 15:38 | NUR ---
DISCHARGE NOTE: PATIENT WAS EDUCATED ON DISCHARGE INSTRUCTIONS. SHE VERBALIZED HER UNDERSTANDING OF INSTRUCTIONS AND HAD NO FUTHER QUESTIONS. HARD PERSCRIPTION WAS GIVEN TO HER AND PLACED IN INSTRUCTIONS FOLDER. HER ABX AND ZOFRAN PILLS WERE CALLED IN TO HER PREFERRED PHARMACY WHICH WAS [facility]. PAIN IS MANAGED WITH PO PAIN MEDICATIONS. HER INCISION SITE ON HER LEFT HIP IS C/D/I. DENIES NAUSEA OR VOMITING. SHE IS TOLERATING PO INTAKE AND IS VOIDING/PASSING GAS. SHE IS DRESSED AND HAS ITEMS IN THE ROOM GATHERED. PATIENT IS INDEP. IN THE ROOM. SHE WILL BE WHEELCHAIRED DOWN TO HER BOYFRIENDS CAR TO BE TAKEN HOME ONCE HE IS HERE. IV WAS TAKEN OUT AND WNL.
--- NOTE | 2022-05-27 16:39 | NUR ---
PATIENTS BOYFRIEND HAS ARRIVED AND WILL BE WHEELCHAIRED DOWN TO HIS CAR WITH HER PERSONAL ITEMS.
[2022-05-30 17:09] LABS: 25-HYDROXY, VITAMIN D 19 ng/mL (.); 25-HYDROXY, VITAMIN D-2 <1.0 ng/mL (.); 25-HYDROXY, VITAMIN D-3 18 ng/mL (.)
== END 2022-05-27 16:39 | disposition home or self-care (01) | DRG 811 ==
LOC: ER 09:11 → MEDS 09:12 → SURS 05-18 15:20 → PCU 05-18 15:20 → SURS 05-18 15:20 → MEDS 05-18 15:20 → PCU 05-18 18:25 → SURS 05-25 00:46
PROVIDERS: Emergency Medicine; Family Medicine; Hospitalist; Internal Medicine; Internal Medicine Nephrology; Nurse Practitioner Acute Care; ADMIT Internal Medicine
PROC: B417ZZZ Fluoroscopy of Left Renal Artery (ICD-10-PCS; principal; 2022-05-24)
PROC: 30233N1 Transfusion of Nonautologous Red Blood Cells into Peripheral Vein, Percutaneous Approach (ICD-10-PCS; 2022-05-25)
DX: D62 Acute posthemorrhagic anemia (principal); N17.0 Acute kidney failure with tubular necrosis; N28.89 Other specified disorders of kidney and ureter; Z28.21 Immunization not carried out because of patient refusal; Z20.822 Contact with and (suspected) exposure to COVID-19; F32.A Depression, unspecified; F17.210 Nicotine dependence, cigarettes, uncomplicated; D72.829 Elevated white blood cell count, unspecified; T50.8X5A Adverse effect of diagnostic agents, initial encounter; N14.11 Contrast-induced nephropathy; Z98.890 Other specified postprocedural states; Z87.442 Personal history of urinary calculi; Z79.899 Other long term (current) drug therapy
CPT/HCPCS: 0241U; 36253-LT; 36415; 74177; 76937; 80048; 80053; 80202; 81001; 82306; 82550; 82570; 82652; 83605; 83690; 83735; 83880; 83970; 84100; 84145; 84156; 84550; 85014; 85018; 85025; 85027; 85651; 86140; 86850; 86900; 86901; 86923; 87040; 87086; 96361; 96365-59; 96367; 96375; 96376; 99152; 99153; 99285-25; A9270; C1760; C1769; C1887; C1894; G0378; J0696; J1644; J1885; J2405; J2543; J2550; J3010; J3370; J7030; J7040; J7050; P9016; Q9967